=== PATIENT | male | born 1960 | race Caucasian/White ===

== ENCOUNTER 2018-04-07 10:26 | Inpatient (IN) | payer OTHER ==
[~2018-04-07] VITALS: Ht 167.6 cm; Wt 76.8 kg
[2018-04-07 10:31] VITALS: Ht 167.6 cm; Wt 76.8 kg
[2018-04-07 11:06] LABS: BASOPHIL % 0.1 % (0-2); PLATELET COUNT 233 x10^3mcL (130-400)
[2018-04-07 11:09] LABS: UA SPECIFIC GRAVITY 1.015 (1.005-1.035); microscopic required? YES; urine erythrocyte 1+ (NEGATIVE)
[2018-04-07 11:09] LABS: RED CELL DISTRIBUTION WIDTH 16.6 % (11.5-14.5)
[2018-04-07 11:22] LABS: CREATININE SERUM 1.5 mg/dL (0.7-1.3); POTASSIUM SERUM 4.7 mmol/L (3.5-5.1)
[2018-04-07 11:27] LABS: BILIRUBIN TOTAL 0.95 mg/dL (0.20-1.00)
[2018-04-07 11:33] LABS: ALBUMIN 2.6 g/dL (3.4-5.0); CHOLESTEROL/HDL RATIO 3.6; TOTAL PROTEIN, SERUM 6.1 g/dL (6.4-8.2)
[2018-04-07 11:45] LABS: FREE T4 1.61 ng/dL (0.76-1.46); FREE THYROXINE INDEX 4.4 ug/dL (1.4-4.5); T4(THYROXINE) 11.7 ug/dL (4.7-13.3)
[2018-04-07 11:49] LABS: T3 TOTAL 0.69 ng/mL
[2018-04-07] MEDS ORDERED: KLOR-CON M2020 MEQ PO (12:12)
[2018-04-07] MEDS ORDERED: ISO10 PO (12:13)
[2018-04-07] MEDS ORDERED: METFORMIN HCL500 MG PO (12:13)
[2018-04-07] MEDS ORDERED: LASIX20 MG PO (12:15)
[2018-04-07] MEDS ORDERED: ZOCOR20 MG PO (12:15)
[2018-04-07] MEDS ORDERED: COREG12.5 MG PO (12:15)
[2018-04-07] MEDS ORDERED: CLARITIN10 MG PO (12:15)
[2018-04-07] MEDS ORDERED: CLOPIDOGREL75 M1 PO (12:16)
[2018-04-07] MEDS ORDERED: AMIODARONE HCL200 MG PO (12:16)
[2018-04-07] MEDS ORDERED: LASIX40 MG PO (12:17)
[2018-04-07] MEDS ORDERED: RENEXA PO (12:18)
[2018-04-07] MEDS ORDERED: XALATAN2.5 ML OU (12:19)
[2018-04-07 13:06] LABS: AMPHETAMINE QUAL UR NONE DETECTED (See below)
[2018-04-07 13:17] VITALS: BP 140/92
[2018-04-07 14:24] LABS: PHOSPHOROUS 3.7 mg/dL (2.5-4.9)
[2018-04-07] MEDS ORDERED: SYNTHROID0.075 MG PO (17:20)
[2018-04-07 17:58] VITALS: BP 148/96
[2018-04-07 19:48] VITALS: BP 148/96
[2018-04-07 20:04] VITALS: BP 163/89
[2018-04-08 06:51] VITALS: BP 111/63
[2018-04-08 07:19] LABS: CALCIUM 7.7 mg/dL (8.5-10.1); CARBON DIOXIDE 31.1 mmol/L (21-32); CHLORIDE SERUM 106 mmol/L (98-107); CREATININE SERUM 1.3 mg/dL (0.7-1.3); GFR1 > 60 mL/min; GLUCOSE SERUM 81 mg/dL (74-106); POTASSIUM SERUM 4.1 mmol/L (3.5-5.1); SODIUM SERUM 143 mmol/L (136-145)
[2018-04-08 07:21] LABS: BASOPHIL % 0.2 % (0-2); PLATELET COUNT 195 x10^3mcL (130-400)
[2018-04-08 09:29] VITALS: BP 128/58
[2018-04-08 10:10] LABS: RED CELL DISTRIBUTION WIDTH 16.8 % (11.5-14.5)
[2018-04-08 12:32] VITALS: BP 94/47
[2018-04-08 16:35] VITALS: BP 117/64
[2018-04-08 20:46] VITALS: BP 123/70
[2018-04-09 05:11] VITALS: BP 123/75
[2018-04-09 05:49] LABS: BASOPHIL % 1.4 % (0-2); PLATELET COUNT 190 x10^3mcL (130-400)
[2018-04-09 05:51] LABS: RED CELL DISTRIBUTION WIDTH 15.3 % (11.5-14.5)
[2018-04-09 05:59] LABS: CALCIUM 7.6 mg/dL (8.5-10.1); CARBON DIOXIDE 31.2 mmol/L (21-32); CHLORIDE SERUM 105 mmol/L (98-107); CREATININE SERUM 1.1 mg/dL (0.7-1.3); GFR1 > 60 mL/min; GLUCOSE SERUM 94 mg/dL (74-106); SODIUM SERUM 139 mmol/L (136-145)
[2018-04-09 07:50] VITALS: BP 129/70
[2018-04-09 12:38] VITALS: BP 116/65
[2018-04-09 16:21] VITALS: BP 129/78
[2018-04-09] MEDS ORDERED: LOVENOX100 MG/M1 IJ (18:00)
[2018-04-09] MEDS ORDERED: COUMADIN10 MG PO (18:01)
[2018-04-09] MEDS ORDERED: COUMADIN5 MG PO (18:03)
[2018-04-09] MEDS ORDERED: FLO4 PO (18:04)
== END 2018-04-09 19:05 | disposition home or self-care (01) | DRG 465 ==
LOC: ED 10:26 → MU 12:00 → DU 12:00
PROVIDERS: Internal Medicine; Specialist
DX: N13.2 Hydronephrosis with renal and ureteral calculous obstruction (principal); N17.0 Acute kidney failure with tubular necrosis; E43 Unspecified severe protein-calorie malnutrition; J18.9 Pneumonia, unspecified organism; I50.9 Heart failure, unspecified; I48.92 Unspecified atrial flutter; E11.65 Type 2 diabetes mellitus with hyperglycemia; I25.10 Atherosclerotic heart disease of native coronary artery without angina pectoris; I25.5 Ischemic cardiomyopathy; E03.9 Hypothyroidism, unspecified; H40.9 Unspecified glaucoma; Z68.26 Body mass index [BMI] 26.0-26.9, adult; Z87.891 Personal history of nicotine dependence; Z86.73 Personal history of transient ischemic attack (TIA), and cerebral infarction without residual deficits; Z88.0 Allergy status to penicillin; I25.2 Old myocardial infarction; Z95.1 Presence of aortocoronary bypass graft; Z79.84 Long term (current) use of oral hypoglycemic drugs
CPT/HCPCS: 82962; 83880; 84439; 90658; 94150; J1160; J1644; J1650; J2543; J7030; Q0092

== ENCOUNTER 2018-07-15 19:42 | Emergency (ER) | payer OTHER ==
[~2018-07-15] VITALS: Ht 165.1 cm; Wt 82.1 kg
[~2018-07-15 19:42] MED LIST: AMIODARONE HCL200 MG PO; CLARITIN10 MG PO; CLOPIDOGREL75 M1 PO; COREG12.5 MG PO; COUMADIN10 MG PO; COUMADIN5 MG PO; FLO4 PO; ISO10 PO; KLOR-CON M2020 MEQ PO; LASIX20 MG PO; LASIX40 MG PO; LOVENOX100 MG/M1 IJ; METFORMIN HCL500 MG PO; RENEXA PO; SYNTHROID0.075 MG PO; XALATAN2.5 ML OU; ZOCOR20 MG PO
[2018-07-15 19:53] VITALS: Ht 165.1 cm; Wt 82.1 kg
[2018-07-15 21:10] VITALS: BP 100/53
== END 2018-07-15 21:10 | disposition home or self-care (01) ==
LOC: ED 19:42
DX: R04.0 Epistaxis (principal); I11.0 Hypertensive heart disease with heart failure; I50.9 Heart failure, unspecified; E11.9 Type 2 diabetes mellitus without complications; E03.9 Hypothyroidism, unspecified; I25.2 Old myocardial infarction; Z88.0 Allergy status to penicillin; Z86.73 Personal history of transient ischemic attack (TIA), and cerebral infarction without residual deficits

== ENCOUNTER 2018-07-17 14:02 | Emergency (ER) | payer OTHER | END 2018-07-17 16:12 | disposition home or self-care (01) | LOC: ED 14:02 ==